=== PATIENT | male | born 1995 | race Caucasian/White ===

== ENCOUNTER → 2024-05-22 09:12 | Outpatient (BNVA) | payer SELFPAY | PROVIDERS: Family Provider Nurse Practitioner Family; PCP Nurse Practitioner Family; Visit Provider Physician Assistant | DX: G56.01 Carpal tunnel syndrome, right upper limb (principal) | CPT/HCPCS: 73110 ==

== ENCOUNTER 2024-07-12 09:12 | Day surgery (SDC) | payer OTHER, SELFPAY ==
[2024-07-12] VITALS (12 sets, daily range): BP systolic 92–122; BP diastolic 54–81; PULSE 46–80; RESP 14–18; TEMP 36.1–37; O2SAT 92–98; BMI 27.4
[2024-07-12] MEDS: scopolamine 1 mg PATCH 1 PATCH TRANSDERMA (09:36)
[2024-07-12] MEDS: acetaminophen 1,000 MG/100 ML PIGGYBACK 400 MG IV (09:38)
[2024-07-12] MEDS: sodium chloride 0.9% 1,000 ML 30 ML IV (09:39)
[2024-07-12] MEDS: ketorolac 30 mg/mL INJ IVP (09:42)
--- NOTE | 2024-07-12 10:06 | W.PM.OPSFHP ---
Same Day Surgery H&P Indication for Procedure/HPI DATE OF PROCEDURE: July 12, 2024 CHIEF COMPLAINT/INDICATIONFOR SURGICAL PROCEDURE: Right carpal tunnel syndrome PREOP DIAGNOSIS: Right carpal tunnel syndrome PLANNED PROCEDURE: Operation Date: 07/12/24 11:20 Proposed Procedures p Carpal Tunnel Release(Right) - Papo Morris, DO Medications/Allergies* Home Medications ?Medication ?Instructions ?Recorded ?Confirmed ?Type albuterol sulfate 90 mcg/actuation 2 puff inhalation Q6H 05/22/24 07/11/24 History aerosol inhaler Allergies/Adverse Reactions Allergy/AdvReac Type Severity Reaction Status Date / Time No Known Allergies Allergy Unverified 05/22/24 09:14 Current Medications: Generic Name Dose Route Start Last Admin Trade Name Freq PRN Reason Stop Dose Admin Sodium Chloride 1,000 mls @ 30 mls/hr 07/12/24 09:30 07/12/24 09:39 Sodium Chloride 0.9% IV 07/13/24 09:29 30 mls/hr .Q24H MARJORIE Administration Pertinent History/Comorbid Conditions* Social History Smoking and tobacco/nicotine status: current every day tobacco/nicotine user (chews tobacco) Marital status: Single Pertinent Exam Findings alert, oriented x 3, operative site marked and procedure specific exam findings Please refer to detailed orthopedic examination on 05/22/2024 listed below: Right Hand exam-positive Tinel's and positive Phalen's test. No thenar atrophy and no thenar muscle weakness. Full range of motion in fingers and wrist and fingers are warm and well-perfused with normal cap refill under 2 seconds. Radial pulse 2+, no intrinsic muscle weakness noted. Right Elbow exam-negative Tinel's test Recommendations Surgery/Procedure today Other Plans: Plan to proceed to the OR today for a right carpal tunnel release. Patient's been seen and worked up in the outpatient setting and plan to proceed with a right carpal tunnel release. 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 After detailed out the procedure he agrees to proceed with adding on the tenosynovial biopsy as a result we will proceed with a right carpal tunnel release with tenosynovial biopsy. Patient understands the ins and outs procedure the risk benefits complication alternatives surgery and through shared decision-making elects proceed with surgical invention. All questions answered at this time. Coding Level of Care Code Acute Code for Serena Jones
--- NOTE | 2024-07-12 10:16 | P.ANESASSM_ITS ---
Pre-Anesthetic Assessment Height/Weight: Height 5 ft 4 in Weight 160 lb Temp Pulse Resp BP Pulse Ox O2 Del Method 98.6 F 60 18 122/81 98 Room Air 07/12/24 09:22 07/12/24 09:22 07/12/24 09:22 07/12/24 09:36 07/12/24 09:22 07/12/24 09:22 Preop Diagnosis: Right carpal tunnel syndrome Operation Date: 07/12/24 11:20 Proposed Procedures p Carpal Tunnel Release(Right) - Papo Morris, DO Was Beta Angelica taken within 24 hours: N/A Was Clonidine taken within 24 hours: N/A Last intake: Intake Last Liquid Date 07/11/24 Last Liquid Time 22:00 Last Solid Date 07/11/24 Last Solid Time 19:00 Social No alcohol and No tobacco Exam alert, oriented x 3, clear to auscultation bilaterally and regular rate & rhythm Airway Submandibular: within normal limits Cervical ROM: within normal limits Mallampati: Class II Dentition: full Anesthetic Plan ASA status: 2 Anesthesia: MAC Other: No prior issues with anesthesia NPO since yesterday evening History of smoking Prior heavy alcohol use, quit 6 months ago GERD diet controlled METs greater than 4 Plan for MAC anesthetic with local via surgeon Medications/Allergies Home Medications ?Medication ?Instructions ?Recorded ?Confirmed ?Last Taken ?Type albuterol sulfate 90 mcg/actuation 2 puff inhalation Q 6H 05/22/24 07/11/24 07/11/24 History aerosol inhaler tramadol 50 mg tablet 50 mg PO Q6H PRN pain 5 days #20 07/12/24 Unknown Rx tabs Allergies Allergy/AdvReac Type Severity Reaction Status Date / Time No Known Allergies Allergy Unverified 05/22/24 09:14 Current Medications Generic Name Dose Route Start Last Admin Trade Name Freq PRN Reason Stop Dose Admin Sodium Chloride 1,000 mls @ 30 mls/hr 07/12/24 09:30 07/12/24 09:39 Sodium Chloride 0.9% IV 07/13/24 09:29 30 mls/hr .Q24H MARJORIE Administration PFSH Anesthesia Social History (Updated 05/22/24 @ 09:20 by Dannielle Walton LPN) Smoking and tobacco/nicotine status: current every day tobacco/nicotine user (chews tobacco) Marital status: Single Data Anesthesia Cardiac Studies: No Data to Display
[2024-07-12] MEDS: ceFAZolin 2,000 MG in sodium chloride 0.9% (plus) 50 ML 100 MG IV (11:00)
[2024-07-12] MEDS: ROPivacaine 0.5% SDV 30 mL 150 MG INJECTION (11:12)
[2024-07-12] MEDS: lidocaine-epi 1% 20 mL INJ INJECTION (11:12)
--- NOTE | 2024-07-12 11:31 | P.BOP_ITS ---
Date of Procedure: 07/12/2024 Surgeon: Papo Morris DO Thermal Spray Operator(s): None Procedure(s) performed: Right carpal tunnel release Right carpal tunnel tenosynovial biopsy Findings of the procedure(s): Patient underwent procedure as planned without issues or complications. Estimated blood loss: 2 mL Specimen(s) removed: Tenosynovial biopsy of the right carpal tunnel was performed and sent for specimen as well as [place] red/amyloidosis staining Post-operative diagnosis: Right carpal tunnel syndrome
--- NOTE | 2024-07-12 11:32 | P.OP_ITS ---
Operative Report Date of procedure: July 12, 2024 Specimens removed/disposition: Tenosynovial biopsy of the right carpal tunnel was performed and sent for specimen and [place] red/amyloidosis staining Pathology: Tenosynovial biopsy of the right carpal tunnel was performed and sent for specimen and [place] red/amyloidosis staining Surgeon: Papo Morris DO Procedure: Preop Diagnosis: Right Carpal Tunnel Syndrome Post-op diagnosis: Same Procedure done: 1. Right carpal tunnel release 2. Right carpal tunnel tenosynovial biopsy Surgeon: Papo Morris DO Anesthesia: MAC (Local) Estimated blood loss: 2 mL Tourniquet time 9 minutes IV fluids: See anesthesia record Complications: None Findings: See operative report narrative Condition: stable Disposition: same day Brief History: Patient is a pleasant 28 year-old male with right carpal tunnel syndrome. Patient has been worked up in the outpatient setting findings and physical examination consistent with this. Patient nerve conduction studies consistent with carpal tunnel syndrome. We detailed out patient's risk benefits complication alternatives with surgical and nonsurgical treatment options. Through shared decision making, patient agrees to proceed with surgical intervention of the right carpal tunnel release with tenosynovial biopsy. Patient understands and agrees with current plan. All questions answered. Patient elects to proceed with surgical intervention. Procedure: Patient seen and evaluated in the preoperative holding area. Consent was reviewed and signed with patient. Correct extremity was marked. Patient was seen evaluated by the anesthesia department once cleared for surgery was brought back to the operative suite. Patient was kept on [facility] in supine position all bony prominences were well-padded patient properly secured to the bed. Right upper extremity was then placed onto an armboard. A nonsterile tourniquet was applied to the Right upper arm. Patient underwent anesthesia per the anesthesia department. Patient's Right upper extremity was then prepped and draped in standard orthopedic fashion. Final timeout performed. Patient received appropriate preoperative antibiotics. Under sterile aseptic technique patient received local anesthesia over the preplanned carpal tunnel incision site. Esmarch was used to exsanguinate the Right upper extremity and tourniquet was insufflated to 250 mmHg. A standard mini open Right carpal tunnel incision was made. Starting distally at Chambers's cardinal line in line with the fourth ray extending proximally distal to the wrist crease centered over the carpal tunnel. Sharp scalpel incision was made through skin and subcutaneous tissue. Self-retaining retractor was placed and the palmar fascia was identified. This was then split longitudinally and direct visualization of the transverse carpal ligament was then made. I then utilizing scalpel feathered through the transverse carpal ligament until I entered the floor of the transverse carpal tunnel ligament into the carpal tunnel. Next I switched to dissection scissors and completed my release of the transverse carpal ligament distally with care to protect the recurrent motor branch. I completely released into the palmar fat and until no entrapment was noted distally. Care was made to protect the superficial palmar arch during my distal dissection. Next I utilized a nasal speculum placed on top of the transverse carpal ligament and utilize this to retract the subcutaneous fat and tissue and under direct loupe magnification was able to identify the transverse carpal ligament. Next I then protected the contents of the carpal tunnel and subsequently utilizing dissection scissors under loupe magnification completely released the transverse carpal ligament proximally into the antebrachial fascia. Care was made to protect the palmar cutaneous branch by keeping my scissors curved ulnarly. Once completely released, I then placed my [place] and had appropriate decompression of the carpal tunnel proximally as well as distally. I then inspected the contents of the carpal tunnel which showed an hourglass shape of the median nerve showing its compression. No masses were noted. Tendons appeared healthy. Wound was then thoroughly irrigated. At this point in time I performed the tenosynovial biopsy I subsequently took a small portion of the radial leaflet of the transverse carpal ligament and places in specimen cup as well as in addition was tenosynovium off of one of the flexor tendons. This was performed atraumatically and all neurovascular structures and tendon were protected throughout this portion EXTR then harvested and sent in a specimen cup for pathology for specimen and [place] red/amyloidosis staining. Tourniquet deflated. Hemostasis satisfactory with bipolar electrocautery. I then closed the incision with interrupted nylon stitches. Xeroform 4 x 4's and a bulky soft dressing was applied. Patient was then awakened from anesthesia and taken to PACU in stable condition. Patient tolerated procedure without complications. Disposition: Patient taken to PACU in stable condition recovering well. Dressing clean dry and intact. Patient will receive appropriate discharge instructions as well as pain medication postoperatively. Patient to follow-up with me in the office in 2 weeks. They understand they may be weightbearing as tolerated to the right hand. Patient should keep incision clean dry and intact. Patient understands if any questions or concerns may contact the office.
--- NOTE | 2024-07-12 13:00 | ANE.PACU2 ---
Inpatient post-anesthesia follow up: Airway intact: Yes Vital signs: Temperature 97.3 F Pulse Rate 52 Respiratory Rate 18 Blood Pressure 100/69 Pulse Oximetry 97 Oxygen Delivery Me thod Room Air Oxygen Flow Rate Fraction of Inspir ed Oxygen Hydration adequate: Yes Nausea and vomiting: No Pain level: 1 Mental status: Baseline
== END 2024-07-12 13:00 | disposition home or self-care (01) ==
PROVIDERS: PCP Nurse Practitioner Family; Visit Provider Student in an Organized Health Care Education/Training Program
PROC: (CPT 64721; principal; 2024-07-12 11:10)
DX: G56.01 Carpal tunnel syndrome, right upper limb (principal); K21.9 Gastro-esophageal reflux disease without esophagitis; F17.220 Nicotine dependence, chewing tobacco, uncomplicated
CPT/HCPCS: 64721; 25115; 88304; 88313; J0131; J0690; J1885; J2250; J2704; J2795; J3010; J7030